=== PATIENT | male | born 1970 ===

== ENCOUNTER 2022-10-31 05:09 | Day surgery (SDC) | payer OTHER ==
[~2022-10-31] VITALS: Ht 165.1 cm; Wt 95.3 kg
[~2022-10-31 05:09] MED LIST: COZAAR100 MG PO; SIMVAST PO
== END 2022-10-31 12:00 | disposition home or self-care (01) ==
LOC: CIR.AMB 05:09
PROVIDERS: ATTEND Surgery
DX: L72.0 Epidermal cyst (principal); R22.2 Localized swelling, mass and lump, trunk; Z20.822 Contact with and (suspected) exposure to COVID-19; I10 Essential (primary) hypertension; E78.5 Hyperlipidemia, unspecified